=== PATIENT | male | born 1980 | race Caucasian/White ===

== ENCOUNTER 2017-05-28 11:22 | Emergency (ER) | payer MEDICAID ==
[~2017-05-28] VITALS: Ht 175.3 cm; Wt 65.5 kg
[2017-05-28 11:31] VITALS: BP 137/93
[2017-05-28] MEDS ORDERED: CEPH-572 PO (12:05)
== END 2017-05-28 12:11 | disposition home or self-care (01) ==
LOC: ER 11:22
DX: L02.214 Cutaneous abscess of groin (principal)
CPT/HCPCS: 10060; 99283; A6449